=== PATIENT | female | born 1950 | race Two or more races ===

== ENCOUNTER 2018-09-15 14:31 | Emergency (ER) | payer MEDICAID, MEDICARE, OTHER ==
[~2018-09-15] VITALS: Ht 152.4 cm; Wt 67.6 kg
[~2018-09-15 14:31] MED LIST: ACYCLOVIR400 MG ORAL; AMOXICILLIN500 MG ORAL; CLINDAMYCIN HC150 MG ORAL; NKM; PREDNISONE20 MG ORAL; TEARS NATURALE RIGHT EYE
[2018-09-15] MEDS ORDERED: Morphine Sulfate 4mg/ml Inj (IV USE ONLY) IVP ONE (14:45)
[2018-09-15] MEDS ORDERED: Isovue-300 100ml vial INJ PRN (14:45)
--- NOTE | 2018-09-15 14:49 | NUR ---
ED Nurse Note: PT WALKED IN TO ER TODAY FROM HOME. AOX4. PT C/O LOWER ABDOMINAL PAIN, 5/10 X 3 WEEKS. PT ALSO STATES SHE HAD ONE EPISODE OF HEMATURIA X 15 MINUTES AGO. URINE SAMPLE PROVIDED BY PT. NO OBVIOUS BLOOD NOTED. PT DENIES NAUSEA, VOMITING, OR DIARRHEA. ABDOMEN NONDISTENDED AND NONTEDNER TO PALPATION.
[2018-09-15 14:50] VITALS: BP 185/74
--- NOTE | 2018-09-15 14:51 | Emergency Room Report ---
History of Present Illness General Chief Complaint: Abdominal Pain Source: Patient Present Illness HPI 67-year-old female history of lymphoma status post chemotherapy presents with 3 weeks of vague lower abdominal pain achy in nature, no aggravating alleviating factors, no diarrhea, today she started urinating blood and having pain with urination, she denies any fevers chills chest pain shortness of breath, severity is moderate. Allergies: Coded Allergies: No Known Allergies (Unverified , 04/12/13) Patient History Past Medical History: see triage record Reviewed Nursing Documentation: PMH: Agreed; PSxH: Agreed Nursing Documentation-PMH Hx Cardiac Problems: No - Cancer Lymphoma 4 years ago Hx Diabetes: Yes Review of Systems All Other Systems: negative except mentioned in HPI Physical Exam Vital Signs Date Time Temp Pulse Resp B/P (MAP) Pulse Ox O2 Delivery O2 Flow Rate FiO2 09/15/18 14:36 98.1 88 15 172/82 (112) 96 Room Air Sp02 EP Interpretation: reviewed, normal General Appearance: well appearing, no apparent distress, alert Head: normocephalic, atraumatic Eyes: bilateral eye PERRL, bilateral eye EOMI ENT: uvula midline, moist mucus membranes Neck: supple, thyroid normal, supple/symm/no masses Respiratory: lungs clear, no respiratory distress, no retraction, no accessory muscle use Cardiovascular #1: normal peripheral pulses, regular rate, rhythm, no edema, no gallop, no murmur Gastrointestinal: non tender, soft, no guarding, no rebound Musculoskeletal: normal inspection Neurologic: alert, oriented x3 Psychiatric: mood/affect normal Skin: no rash, warm/dry Medical Decision Making Diagnostic Impression: Primary Impression: UTI (urinary tract infection) Qualified Codes: N30.01 - Acute cystitis with hematuria Additional Impressions: Uterine mass CKD (chronic kidney disease) Qualified Codes: N18.3 - Chronic kidney disease, stage 3 (moderate) ER Course [age]-year-old female presents with hematuria x1 day, now found to have renal injury most likely chronic, patient with history of diabetes and hypertension, will financial services counselor patient to follow-up with a bumper and painter patient makes urine. Patient found to have a UTI on labs, will start ceftriaxone, patient will be given cephalexin Patient also found to have a uterine mass, patient counseled to follow-up with a gynecology oncologist, return precautions discussed, patient is stable for discharge, no acute emergencies at this time, antibiotics for UTI Laboratory Tests Test 09/15/18 15:01 09/15/18 15:05 Urine Color Pale yellow Urine Appearance Clear Urine pH 5 (4.5-8.0) Urine Specific [place] 1.010 (1.005-1.035) Urine Protein 1+ (NEGATIVE) H Urine Glucose (UA) Negative (NEGATIVE) Urine Ketones Negative (NEGATIVE) Urine Blood 5+ (NEGATIVE) H Urine Nitrite Negative (NEGATIVE) Urine Bilirubin Negative (NEGATIVE) Urine Urobilinogen Normal MG/DL (0.0-1.0) Urine Leukocyte Esterase 1+ (NEGATIVE) H Urine RBC 5-10 /HPF (0 - 2) H Urine WBC 2-4 /HPF (0 - 2) Urine Squamous Epithelial Cells Few /LPF (NONE/OCC) Urine Bacteria Few /HPF (NONE) White Blood Count 12.1 K/UL (4.8-10.8) H Red Blood Count 3.60 M/UL (4.20-5.40) L Hemoglobin 11.0 G/DL (12.0-16.0) L Hematocrit 33.2 % (37.0-47.0) L Mean Corpuscular Volume 92 FL (80-99) Mean Corpuscular Hemoglobin 30.5 PG (27.0-31.0) Mean Corpuscular Hemoglobin Concent 33.2 G/DL (32.0-36.0) Red Cell Distribution Width 11.5 % (11.6-14.8) L Platelet Count 290 K/UL (150-450) Mean Platelet Volume 4.8 FL (6.5-10.1) L Neutrophils (%) (Auto) 56.9 % (45.0-75.0) Lymphocytes (%) (Auto) 36.9 % (20.0-45.0) Monocytes (%) (Auto) 4.8 % (1.0-10.0) Eosinophils (%) (Auto) 0.8 % (0.0-3.0) Basophils (%) (Auto) 0.6 % (0.0-2.0) Prothrombin Time 10.6 SEC (9.30-11.50) Prothrombin Time INR 1.0 (0.9-1.1) PTT 27 SEC (23-33) Sodium Level 136 MMOL/L (136-145) Potassium Level 4.7 MMOL/L (3.5-5.1) Chloride Level 102 MMOL/L (98-107) Carbon Dioxide Level 22 MMOL/L (21-32) Anion Gap 12 mmol/L (5-15) Blood Urea Nitrogen 32 mg/dL (7-18) H Creatinine 2.4 MG/DL (0.55-1.30) H Estimate Glomerular Filtration Rate 20.1 mL/min (>60) Glucose Level 115 MG/DL (74-106) H Calcium Level 9.4 MG/DL (8.5-10.1) Total Bilirubin 0.5 MG/DL (0.2-1.0) Aspartate Amino Transferase (AST) 38 U/L (15-37) H Alanine Aminotransferase (ALT) 22 U/L (12-78) Alkaline Phosphatase 93 U/L (46-116) Total Protein 9.4 G/DL (6.4-8.2) H Albumin 3.9 G/DL (3.4-5.0) Globulin 5.5 g/dL Albumin/Globulin Ratio 0.7 (1.0-2.7) L Lipase 352 U/L (73-393) EKG Diagnostic Results EKG Time: 14:50 EP Interpretation: NSR, rate 90, QTc 442, no acute ST elevations, left axis deviation Rate: normal Rhythm: NSR ST Segments: no acute changes CT/MRI/US Diagnostic Results CT/MRI/US Diagnostic Results : Impression Final Report EXAM: CT Abdomen and Pelvis Without Intravenous Contrast CLINICAL HISTORY: ABD PAIN TECHNIQUE: Axial computed tomography images of the abdomen and pelvis without intravenous contrast. CTDI is 17.25 mGy and DLP is 897 mGy-cm. One or more of the following dose reduction techniques were used: automated exposure control, adjustment of the mA and/or kV according to patient size, use of iterative reconstruction technique. COMPARISON: No relevant prior studies available. FINDINGS: Lung bases: Unremarkable. ABDOMEN: Liver: Unremarkable Gallbladder and bile ducts: No calcified stones. No ductal dilation. Pancreas: Unremarkable. Spleen: Unremarkable. Adrenals: Unremarkable. 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 Superimposed infection can be considered in the appropriate clinical setting. Stomach and bowel: No deana mural thickening. Nonobstructive bowel gas pattern. PELVIS: Appendix: No findings to suggest acute appendicitis. Bladder: Thickening and mass lesion at the base of the bladder that may be originating from the bladder or from the uterus. Reproductive: See above. ABDOMEN and PELVIS: Intraperitoneal space: Small amount of fluid in the pelvis. Bones/joints: No acute fracture. Soft tissues: Unremarkable. Vasculature: Unremarkable. No abdominal aortic aneurysm. Lymph nodes: No enlarged lymph nodes. IMPRESSION: 1. Thickening and mass lesion at the base of the bladder that may be originating from the bladder or from the uterus. 2. 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 Superimposed infection can be considered in the appropriate clinical setting. Last Vital Signs Date Time Temp Pulse Resp B/P (MAP) Pulse Ox O2 Delivery O2 Flow Rate FiO2 09/15/18 14:36 98.1 88 15 172/82 (112) 96 Room Air Disposition: HOME, SELF-CARE Condition: Stable Scripts Cephalexin* (CEPHALEXIN*) 500 Mg Tablet 500 MG ORAL EVERY 6 HOURS, #28 CAP Prov: Al Menendez MD 09/15/18 Referrals: [facility] Garrido. [facility] Patient Instructions: Abdominal Pain, Adult, Chronic Kidney Disease, Easy-to- Read, Hematuria, Adult, Hysterectomy Information, [id number], Pelvic Mass, Urinary Tract Infection, [id number] Additional Instructions: The patient was provided with discharge instructions, notified to follow-up with a primary care doctor and or specialist in the next 24-48 hours, and to return to the ED if they have worsening of their symptoms. Please note that this report is being documented using [employer] Observer technology. This can lead to erroneous entry secondary to incorrect interpretation by the dictating instrument. Please follow-up with a bumper and painter for evaluation of your kidneys Please follow-up with a electrical prospector oncologist for evaluation of the uterine mass as soon as possible Al Menendez MD Sep 15, 2018 14:51
[2018-09-15 15:23] LABS: APPEARANCE,URINE CLEAR; BILIRUBIN, URINE NEGATIVE (NEGATIVE); COLOR,URINE PALE YELLOW; GLUCOSE, URINE (UA) NEGATIVE (NEGATIVE); KETONES,URINE NEGATIVE (NEGATIVE); LEUKOCYTE ESTERASE ,URINE 1+ (NEGATIVE); NITRITE,URINE NEGATIVE (NEGATIVE); PH,URINE 5 (4.5-8.0); PROTEIN,URINE 1+ (NEGATIVE); UROBILINOGEN,URINE NORMAL MG/DL (0.0-1.0)
[2018-09-15 15:26] LABS: BASOPHILS % (AUTO) 0.6 % (0.0-2.0); EOSINOPHILS % (AUTO) 0.8 % (0.0-3.0); HEMATOCRIT 33.2 % (37.0-47.0); LYMPHOCYTES % (AUTO) 36.9 % (20.0-45.0); MEAN CORPUSCULAR VOLUME 92 FL (80-99); MONOCYTES % (AUTO) 4.8 % (1.0-10.0); NEUTROPHILS % (AUTO) 56.9 % (45.0-75.0); PLATELET COUNT 290 K/UL (150-450); RED CELL DISTRIBUTION WIDTH 11.5 % (11.6-14.8); WHITE BLOOD COUNT 12.1 K/UL (4.8-10.8)
[2018-09-15 15:33] LABS: ANION GAP 12 mmol/L (5-15); BLOOD UREA NITROGEN 32 mg/dL (7-18); CALCIUM 9.4 MG/DL (8.5-10.1); CARBON DIOXIDE 22 MMOL/L (21-32); CHLORIDE 102 MMOL/L (98-107); CREATININE 2.4 MG/DL (0.55-1.30); POTASSIUM 4.7 MMOL/L (3.5-5.1); SODIUM 136 MMOL/L (136-145)
[2018-09-15 15:38] LABS: ALANINE AMINOTRANSFERASE 22 U/L (12-78); ALBUMIN 3.9 G/DL (3.4-5.0); ALBUMIN/GLOBULIN RATIO 0.7 (1.0-2.7); ALKALINE PHOSPHATASE 93 U/L (46-116); ASPARTATE AMINO TRANSFERASE 38 U/L (15-37); BILIRUBIN,TOTAL 0.5 MG/DL (0.2-1.0)
--- NOTE | 2018-09-15 15:44 | NUR ---
ED Nurse Note: PT TO CT VIA [facility].
--- NOTE | 2018-09-15 15:58 | NUR ---
HAND-OFF: REPORT GIVEN TO KAVITA GEORGE.
[2018-09-15] MEDS ORDERED: cefTRIAXone 1 GM in NS 55 ML IVPB ONE (16:00)
[2018-09-15 16:50] VITALS: BP 159/69
--- NOTE | 2018-09-15 17:06 | Diagnostic Imaging Report ---
EXAM: CT Abdomen and Pelvis Without Intravenous Contrast CLINICAL HISTORY: ABD PAIN TECHNIQUE: Axial computed tomography images of the abdomen and pelvis without intravenous contrast. CTDI is 17.25 mGy and DLP is 897 mGy-cm. One or more of the following dose reduction techniques were used: automated exposure control, adjustment of the mA and/or kV according to patient size, use of iterative reconstruction technique. COMPARISON: No relevant prior studies available. FINDINGS: Lung bases: Unremarkable. ABDOMEN: Liver: Unremarkable Gallbladder and bile ducts: No calcified stones. No ductal dilation. Pancreas: Unremarkable. Spleen: Unremarkable. Adrenals: Unremarkable. 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 Superimposed infection can be considered in the appropriate clinical setting. Stomach and bowel: No deana mural thickening. Nonobstructive bowel gas pattern. PELVIS: Appendix: No findings to suggest acute appendicitis. Bladder: Thickening and mass lesion at the base of the bladder that may be originating from the bladder or from the uterus. Reproductive: See above. ABDOMEN and PELVIS: Intraperitoneal space: Small amount of fluid in the pelvis. Bones/joints: No acute fracture. Soft tissues: Unremarkable. Vasculature: Unremarkable. No abdominal aortic aneurysm. Lymph nodes: No enlarged lymph nodes. IMPRESSION: 1. Thickening and mass lesion at the base of the bladder that may be originating from the bladder or from the uterus. 2. 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 Superimposed infection can be considered in the appropriate clinical setting.
[2018-09-15] MEDS ORDERED: CEPHALEXIN500 M1 ORAL (17:21)
[2018-09-15 17:46] VITALS: BP 158/79
--- NOTE | 2018-09-15 17:48 | NUR ---
ER DISCHARGE NOTE: Patient is cleared to be discharged per ERMD, pt is aox4, on room air, with stable vital signs. pt was given dc and prescription instructions, pt was able to verbalize understanding, pt id band and iv site removed without complications. pt is able to ambulate with steady gait. pt took all belongings.
== END 2018-09-15 17:48 | disposition home or self-care (01) ==
LOC: EMR 14:40
DX: N30.01 Acute cystitis with hematuria (principal); E11.22 Type 2 diabetes mellitus with diabetic chronic kidney disease; N18.3 Chronic kidney disease, stage 3 (moderate); Z85.72 Personal history of non-Hodgkin lymphomas; N13.30 Unspecified hydronephrosis; R19.00 Intra-abdominal and pelvic swelling, mass and lump, unspecified site
CPT/HCPCS: 36415; 74176; 80053; 81003; 83690; 85025; 85610; 85730; 93005; 96361; 96365; 96375; 99284; J0696; J2270; J2405